=== PATIENT | male | born 2005 | race Caucasian/White ===

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

== ENCOUNTER 2024-04-07 22:32 | Emergency (ER) | payer BC, OTHER, SELFPAY ==
[2024-04-07 22:33] VITALS: BP 150/97; PULSE 109; RESP 20; TEMP 36.7; O2SAT 99; BMI 27.3
[2024-04-07 23:01] VITALS: BP 137/68; PULSE 101; O2SAT 99
--- NOTE | 2024-04-07 23:03 | ED_ITS ---
Discharge Plan Disposition Patient Disposition: Home, Self-Care Chief Complaint: Eye Problems Prescriptions Prescriptions: No Action promethazine-DM 6.25-15 mg/5 mL syrup 5 ml PO Q4-6H PRN (Reason: cough) Qty: 118 0RF dexamethasone 4 mg tablet 4 mg PO BID Qty: 10 0RF doxycycline hyclate 100 mg capsule 100 mg PO BID 7 Days Qty: 14 0RF Referrals Follow up/Referrals: Jayden Payne MD [Primary Care Provider] - See instructions Activity Restrictions/Add. Instructions Additional Instructions/Restrictions: Cyclogyl 3 times daily as needed for photophobia (sensitivity to light). Call your family doctor to establish care for this visit to the emergency department and schedule follow-up within 48 hours to ensure improvement. If you have any worsening of your condition or any other concerning signs or symptoms, return to the emergency department or your primary care doctor for further evaluation. If you continue to have symptoms, call Dr. Bal to schedule follow-up appointment. Put ointment in your eye 3 times daily for the next 5 days. Do not wear contacts while treating this over the next 5 days. Clinical Impressions Clinical Impression: Acute foreign body of left eye Discharge ED Provider: Dipak Chatterjee General Adult HPI General Chief complaint: Eye Problems Stated complaint: LT eye red,purplish Time Seen by Provider: 04/07/24 22:35 Mode of Arrival: Ambulatory Source of Information: Patient Limitations: No Limitations Description of Symptoms (Recalled from ER Triage Doc. by RN): Pt.presented to the ED with c/o left eye redness. Pain started this AM and has gotten progressivlyworse throughout today. left eye red, Pt. states that the light hurt s his eye. History of Present Illness HPI narrative: Please note that above description of symptoms, in this electronic medical record under categorization of recalled from ER triage doctor by RN are reflective of an initial nursing assessment, however, is not reflective of my full history and physical exam that was personally taken and clarified. Consequentially, this preceding description of symptoms, which may include the patient's categorized chief complaint in the EMR, do not reflect my personal clinical impression, and the ultimate description of history of present illness and patient stated complaints should be deferred to this section of the note. Unless stated otherwise or congruent with this section of the note, additional signs, symptoms, or incongruence should be interpreted as inaccurate with my clinical impression. Related Data Previous Rx's Medication Instructions Recorded dexamethasone 4 mg tablet 4 mg PO BID #10 tabs 03/12/22 doxycycline hyclate 100 mg capsule 100 mg PO BID 7 days #14 caps 03/12/22 promethazine-DM 6.25 mg-15 mg/5 mL 5 ml PO Q4-6H PRN cough #118 mL 03/12/22 oral syrup Allergies Allergy/AdvReac Type Severity Reaction Status Date / Time amoxicillin [AMOXICILLIN] Allergy Mild Verified 03/12/22 15:44 [facility] Disclaimer: The information contained in this section may have been updated after the patient was seen, as this information can be updated by other users. Social History Smoking Status: Never smoker second hand exposure: No alcohol intake: never substance use type: denies use current occupational status: employed Travel in the last 8 weeks: None household members: family housing: house current occupational exposures/hazards: No caffeine: Yes ROS Obtained: Yes All systems reviewed & no additional complaints except as documented Physical Exam General General appearance: alert Head Head exam: atraumatic and normocephalic Eye Eye exam: Present PERRL, EOMI, conjunctival redness (Left-sided), conjunctival injection and other (Small foreign body overlying pupil. No rust ring. Patient has consensual photophobia.) Neck Neck exam: Present normal inspection, full ROM and trachea midline Respiratory Respiratory exam: Absent respiratory distress, wheezes, stridor, accessory muscle use or prolonged expiratory phase Cardiovascular Cardiovascular exam: Present other (Pulses equal symmetric in upper and lower extremities) Abdominal Exam Abdominal exam: Present soft; Absent distention, tenderness or pulsatile mass Extremities Exam Extremities exam: Absent edema Neurological Exam Neurological exam: Present alert, oriented X3 and CN II-XII intact; Absent motor sensory deficit Skin Skin exam: Present warm and dry; Absent diaphoresis or erythema Medical Decision Making Medical Records Medical records reviewed: Yes I reviewed the patient's medical records. Sonu Inquiry Pt receiving controlled substance: No Sonu was queried for this patient: No Vital Signs: 04/07/24 22:33 Temperature 98.1 F Temperature Source Oral Pulse Rate [Right Radial] 109 H Respiratory Rate 20 Blood Pressure [Right Arm] 150/97 H Blood Pressure Mean [Right Arm] 114 Blood Pressure Source [Right Arm] Automatic Cuff Blood Pressure Position [Right Arm] Sitting 02 Sat by Pulse Oximetry 99 Oxygen Delivery Method Room Air Medical Decision Narrative: Is a 19-year-old male who is vaccinated for tetanus, does not remember the last time he was updated presenting with left eye pain. 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 Also wears contacts. Yesterday, 04/06, started having pain in his left eye. Continue to get worse throughout today. Came in for further evaluation. No blurry vision, changes in vision, but he is photophobic. History obtained with patient. On physical exam, patient very well appearing. Conjunctival injection left eye with small foreign body overlying left pupil. Does not spare the limbus. Patient has consensual photophobia. EOMs are intact. Tetracaine drops were added. Patient still having consensual photophobia. Cyclogyl was given out of concern for traumatic iritis. Fluorescein stain exam with focal uptake around foreign body. No evidence of Bebe sign. Foreign body removed with needle and cotton-tipped applicator. Patient was given Tdap. On reevaluation, patient having no discomfort in his left eye. I feel this is a combination of metallic left eye foreign body with component of traumatic iritis. Because patient at baseline without signs or symptoms of clinical decompensation, deemed appropriate for discharge. Results were relayed to patient who voiced understanding and were agreeable to outpatient management and follow up. I discussed my clinical impression with patient and answered all questions. At this time, the evidence for any other entities in the differential is insufficient to warrant any further testing or ED observation. This was explained as well. Advisory was given that persistent or worsening symptoms require further evaluation. I confirmed the understanding of this discussion. Emergency Vehicle Operations Instructor disclaimer Much of this encounter note is an electronic salesperson men's hats spoken language to printed text. Electronic salesperson men's hats of the spoken language may permit errors. Although I have reviewed the note, some errors may still exist. Procedures Eye Exam/FB Removal Location: eye (L) Topical anesthetic used: tetracaine Fluorescein Stick(s) used: Yes Time Out performed: No Procedure performed under: direct visualization with magnification Foreign body: metal Evidence of corneal penetration: No Technique: cotton tip swab and needle Post-procedure medication: ophthalmic antibiotic Patient tolerated procedure: well Critical Care Critical Care Time Critical Care Time: No
[2024-04-07] MEDS: TETRACAINE 0.5% OPTH SOL 15ML OP (23:37)
[2024-04-07] MEDS: FLUORESCEIN SODIUM 1MG STRIP 1 MG OP (23:38)
[2024-04-07] MEDS: TET/DIPHTH/PERT-ADULT 0.5ML SYRINGE 0.5 ML IM (23:38)
--- NOTE | 2024-04-07 23:46 | PC.NURSE ---
Tetracaine and fluroscene administered by doctor Chatterjee during exam
[2024-04-07 23:47] VITALS: BP 137/68; PULSE 100; RESP 20; TEMP 36.7; O2SAT 99
== END 2024-04-07 23:50 | disposition home or self-care (01) ==
PROVIDERS: Emergency Provider Emergency Medicine; PCP Internal Medicine Adolescent Medicine
DX: T15.92XA Foreign body on external eye, part unspecified, left eye, initial encounter (principal); H53.142 Visual discomfort, left eye; H20.042 Secondary noninfectious iridocyclitis, left eye; W31.1XXA Contact with metalworking machines, initial encounter; Z23 Encounter for immunization; W44.E9XA Other non-magnetic metal objects entering into or through a natural orifice, initial encounter
CPT/HCPCS: 65220; 90471; 90715; 99283